=== PATIENT | female | born 1930 | race Asian ===

== ENCOUNTER 2019-07-24 17:40 | Emergency (ER) | payer SELFPAY ==
[~2019-07-24] VITALS: Ht 157.5 cm; Wt 61.2 kg
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
[2019-07-24 18:44] LABS: ANION GAP 9 mmol/L (5-15); BLOOD UREA NITROGEN 17 mg/dL (7-18); CALCIUM 9.1 MG/DL (8.5-10.1); CARBON DIOXIDE 29 MMOL/L (21-32); CHLORIDE 104 MMOL/L (98-107); CREATININE 0.9 MG/DL (0.55-1.30); POTASSIUM 3.3 MMOL/L (3.5-5.1); SODIUM 142 MMOL/L (136-145)
[2019-07-24 18:48] LABS: ALANINE AMINOTRANSFERASE 22 U/L (12-78); ALKALINE PHOSPHATASE 44 U/L (46-116); ASPARTATE AMINO TRANSFERASE 27 U/L (15-37); BILIRUBIN,TOTAL 0.7 MG/DL (0.2-1.0)
[2019-07-24 18:56] LABS: BASOPHILS % (AUTO) 0.8 % (0.0-2.0); EOSINOPHILS % (AUTO) 3.9 % (0.0-3.0); HEMATOCRIT 38.2 % (37.0-47.0); MEAN CORPUSCULAR VOLUME 93 FL (80-99); MONOCYTES % (AUTO) 8.1 % (1.0-10.0); NEUTROPHILS % (AUTO) 51.2 % (45.0-75.0); PLATELET COUNT 136 K/UL (150-450); RED BLOOD COUNT 4.09 M/UL (4.20-5.40); RED CELL DISTRIBUTION WIDTH 11.5 % (11.6-14.8); WHITE BLOOD COUNT 4.7 K/UL (4.8-10.8)
[2019-07-24 19:00] VITALS: BP 181/78
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
--- NOTE | 2019-07-24 19:16 | NUR ---
ED Nurse Note: RN LEFT MESSAGE TO DAUGHTER @ [phone] AND. ATTEMPTED TO CONTACT AT [phone] AND NO ONE ANSWERED AND NO ANSWERING MACHINE AVAILABLE.
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
--- NOTE | 2019-07-24 19:30 | NUR ---
ED Nurse Note: Pt ambulated to nurses station to call daughter to get picked up.
[2019-07-24] MEDS ORDERED: NAPROXEN250 MG ORAL (19:39)
[2019-07-24] MEDS ORDERED: Ketorolac 30mg Inj IV ONE (19:45)
--- NOTE | 2019-07-24 20:03 | NUR ---
ED Nurse Note: Family at bedside.
[2019-07-24 20:15] VITALS: BP 167/77
[2019-07-24 20:19] VITALS: BP 167/77
--- NOTE | 2019-07-24 20:19 | NUR ---
ER DISCHARGE NOTE: Patient is cleared to be discharged per ERMD, pt is aox4, on room air, with stable vital signs. pt was given dc and prescription instructions, pt was able to verbalize understanding, pt id band and iv site removed without complications. pt is able to ambulate with steady gait. pt took all belongings. Pt ambulated with famiy at pt side.
[2019-07-24 22:46] LABS: ALBUMIN 4.3 G/DL (3.4-5.0)
--- NOTE | 2019-07-25 10:23 | Diagnostic Imaging Report ---
Indication: Chest pain Technique: One view of the chest Comparison: none Findings: There is bilateral interstitial edema. The heart is mildly enlarged. There may be some pleural fluid on the left. There is a left chest pacemaker Impression: Mild cardiomegaly Bilateral interstitial edema Suspect left pleural effusion
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
--- NOTE | 2019-07-25 15:01 | Cardiology Report ---
APPROVED REPORT EKG Measurement Heart [id number] Normal sinus rhythm Normal ECG
== END 2019-07-24 20:19 | disposition home or self-care (01) ==
LOC: EDBD 17:40 → EMR 18:37
DX: S16.1XXA Strain of muscle, fascia and tendon at neck level, initial encounter (principal); S09.90XA Unspecified injury of head, initial encounter; V43.62XA Car passenger injured in collision with other type car in traffic accident, initial encounter; Y92.9 Unspecified place or not applicable
CPT/HCPCS: 36415; 70450; 71045; 72125; 72170; 80053; 84484; 85025; 85610; 85730; 93005; 96374; 99284; J1885